=== PATIENT | female | born 1970 | race Caucasian/White ===

== ENCOUNTER → 2021-07-29 | Outpatient (CLI) | payer OTHER | END | disposition home or self-care (01) | LOC: LAB SHORT 07:54 | DX: L72.11 Pilar cyst (principal) | CPT/HCPCS: 88304 ==

== ENCOUNTER 2022-02-06 12:11 | Day surgery (SDC) | payer OTHER ==
[~2022-02-06] VITALS: Wt 94.5 kg
[~2022-02-06 12:11] MED LIST: CITALOPRAM HBR20 M6 PO; HYDR1TAB94 PO; IBUP600 PO
[2022-02-06] MEDS ORDERED: ASPI325 (13:08)
--- NOTE | 2022-02-06 14:32 | NUR ---
02/06/[address] KELLY AWARE OF PT REPORTING SHE TOOK ASPIRIN AND IBUPROFEN ON MORNING OF PROCEDURE. OKAY TO PROCEDE WITH ORIF.
== END 2022-02-06 16:41 | disposition home or self-care (01) ==
LOC: ORSCSDS 12:11
PROVIDERS: Orthopaedic Surgery
PROC: 0QSG04Z Reposition Right Tibia with Internal Fixation Device, Open Approach (ICD-10-PCS; principal; 2022-02-06 14:00)
PROC: 0QSJ04Z Reposition Right Fibula with Internal Fixation Device, Open Approach (ICD-10-PCS; principal; 2022-02-06 14:00)
DX: S82.852A Displaced trimalleolar fracture of left lower leg, initial encounter for closed fracture (principal); W17.89XA Other fall from one level to another, initial encounter
CPT/HCPCS: A9270; C1713; J0171; J0690; J1100; J2250; J2405; J2704; J2765; J2795; J3010; J7120

== ENCOUNTER → 2023-03-24 | Outpatient (CLI) | payer OTHER ==
[~2023-03-24] MED LIST changes: +ASPI325
== END | disposition home or self-care (01) ==
LOC: PLD 07:36 → LAB SHORT 07:36
DX: L70.0 Acne vulgaris (principal)
CPT/HCPCS: 88305